=== PATIENT | female | born 1990 | race Caucasian/White ===

== ENCOUNTER 2023-07-15 19:05 | Inpatient (IN) | payer OTHER, SELFPAY ==
--- NOTE | ~2023-07-15 | CT_ITS ---
EXAMINATION: CT ABDOMEN AND PELVIS WITHOUT CONTRAST CLINICAL INFORMATION: Right flank pain history of stones COMPARISON: CT abdomen and pelvis from 02/11/2020 TECHNIQUE: Multidetector volumetric imaging was performed from the superior aspect of the liver through the pubic symphysis. Sagittal and coronal reformatted images were obtained on the technologist's workstation. This CT examination was performed using dose optimization techniques as appropriate, variously including the following: *Automated exposure control *Adjustment of mA and/or kV according to patient size (this includes techniques or standardized protocols for targeted exams where dose is matched to indication/reason for exam; i.e. extremities or head) *Use of iterative reconstruction technique DLP: 457 mGy-cm FINDINGS: LUNG BASES: The visualized lung bases are unremarkable. LIVER, GALLBLADDER, AND BILIARY TREE: The liver is normal in size, shape, and attenuation. No focal hepatic lesion or biliary ductal dilatation is present. The gallbladder is unremarkable with no evidence of radiopaque gallstones, gallbladder wall thickening, or obvious pericholecystic inflammatory changes. PANCREAS: Unremarkable. SPLEEN: Unremarkable. ADRENAL GLANDS: Unremarkable. KIDNEYS AND URETERS: Moderate right-sided hydroureteronephrosis with perinephric and periureteral stranding secondary to a 1.2 cm calculus in the right mid to distal ureter. Additional calculi are noted in the right kidney the largest measuring up to 6 mm in the interpolar/lower pole region. Multiple left-sided renal calculi are noted the largest measuring up to 4 mm without hydronephrosis. BLADDER: Unremarkable. GASTROINTESTINAL TRACT: The small and large bowel are unremarkable. The appendix is unremarkable. ABDOMINAL WALL: No significant hernia is appreciated. LYMPH NODES: Multiple subcentimeter mesenteric lymph nodes are noted, not enlarged per size criteria. VASCULAR: Dominant aorta is not enlarged. PELVIC VISCERA: Anteverted uterus. Fluid within the endometrial canal, correlation with phase of menstruation. Fluid in the pelvis, potentially physiologic. OSSEOUS STRUCTURES: Unremarkable. CT/CT abdomen pelvis wo IV con IMPRESSION: 1. Moderate right-sided hydroureteronephrosis with perinephric and periureteral stranding secondary to a 1.2 cm calculus in the right mid to distal ureter. 2. Bilateral nephrolithiasis with the largest measuring up to 6 mm in the interpolar/lower pole region of the right kidney. 3. Multiple left-sided renal calculi are noted the largest measuring up to 4 mm without hydronephrosis. 4. Fluid within the endometrial canal, correlation with phase of menstruation. Fluid in the pelvis, potentially physiologic.
[2023-07-15 19:09] VITALS: BP 134/62; BP 144/86; PULSE 54; PULSE 72; RESP 18; TEMP 36.5; O2SAT 98; BMI 29.6
[2023-07-15 19:23] LABS: MANUAL DIFF FLAG NO
[2023-07-15 19:25] LABS: Basophils Percent Auto 0.2 % (0-2); Eosinophils Percent Auto 0.2 % (0-4); Hematocrit 38.3 % (37.0-47.0); Hemoglobin 13.2 g/dl (12.0-16.0); Imm Gran Abs Auto 0.04 X10*3/uL (0.00-0.03); Imm Gran Pct Auto 0.3 % (0.0-0.4); Lymphocytes Absolute Auto 2.6 X10*3/uL (1.2-4.9); Lymphocytes Percent Auto 18.6 % (20-40); Mean Corpuscular HGB Conc 34.5 g/dl (31.0-35.0); Mean Corpuscular Hemoglobin 30.6 pg (27.0-33.0); Mean Corpuscular Volume 88.9 fL (80.0-98.0); Mean Platelet Volume 10.2 fL (9.4-12.3); Monocytes Absolute Auto 0.9 X10*3/uL (0.1-1.2); Monocytes Percent Auto 6.5 % (2-11); Neutrophils Absolute Auto 10.2 x10*3/uL (2.0-8.3); Neutrophils Percent Auto 74.2 % (45-73); Platelet Count 233 X10*3/uL (160-400); Red Blood Count 4.31 X10*6/uL (4.20-5.50); Red Cell Distribution Width 13.1 % (11.0-16.0); White Blood Count 13.8 X10*3/uL (4.8-10.8)
--- NOTE | 2023-07-15 19:26 | ED_ITS ---
HPI - General Adult General Chief complaint: Nausea/Vomiting/Diarrhea Stated complaint: KIDNEY STONES, VOMITING Time Seen by Provider: 07/15/23 19:19 Source: patient and EMS Mode of arrival: EMS Limitations: no limitations History of Present Illness HPI narrative: Patient comes to the emergency room complaining of right-sided flank pain, nausea and vomiting. Patient states all her symptoms started suddenly 2 hours ago. Patient has history of kidney stones, patient states the pain feels very similar to previous kidney stones. Patient has had ablations in the past. Patient denies hematuria or dysuria. No fever or chills. Related Data Allergies Allergy/AdvReac Type Severity Reaction Status Date / Time No Known Allergies Allergy Verified 05/06/22 12:53 Review of Systems 2 Review of Systems: Constitutional : No Weight loss, No Fever, No Chills, No Night Sweats, No Fatigue, No Malaise ENT/Mouth : No Hearing loss, No Ear Pain, No Nasal Congestion, No Sinus Pain, No Hoarseness, No sore throat, No Rhinorrhea, No Swallowing Difficulty Eyes: No Eye Pain, No Swelling, No Redness, No Foreign Body, No Discharge, No Vision Changes Cardiovascular : No Chest Pain, No SOB, No Dyspnea on Exertion, No Orthopnea, No Edema, No Palpitations Respiratory : No Cough, No Sputum, No Wheezing, No Smoke Exposure, No Dyspnea Gastrointestinal : Complaining of nausea vomit No Diarrhea, No Constipation, No abdominal Pain, No Hematochezia, No Melena Genitourinary : No hematuria or dysuria, no vaginal bleeding, complaining of severe right-sided flank pain radiating towards the groin Musculoskeletal : No joint pain, No Myalgias, No Joint Swelling Skin : No Skin Lesions, No rash Neuro : No Weakness, No Numbness, No Paresthesias, No Loss of Consciousness, No Dizziness, No Headache Psych : No Anxiety/Panic, No Depression, No SI/HI/AH/VH, No Social Issues, Heme/Lymph: No Bruising, No Bleeding,No Lymphadenopathy Endocrine : No Polyuria, No Polydipsia, No Temperature Intolerance [facility] Past Medical History Medical History Pyelonephritis Renal stones Recurrent nephrolithiasis Surgical History Previous section Social History Social History Alcohol intake: former Smoked in Last 30 Days: No Substance Use Type: Marijuana Substance Use Frequency: Occasionally Last Used Substance: Days (ago) Any prior treatment program specific to substance use: No Advance Directives: No Advance Directives Information Provided: No Patient : No Physical Exam ED Vital Signs: Vital Signs - 24 hr 07/15/23 19:09 07/15/23 20:07 Temperature 97.7 F Pulse Rate 54 Respiratory Rate 18 16 Blood Pressure 134/62 Pulse Oximetry 98 Oxygen Delivery Method Room Air BMI result Body Mass Index 29.6 Const Other: Appearance: Alert. Oriented X3. Very uncomfortable Eyes: Pupils equal, round and reactive to light. ENT: Pharynx normal. Neck: Normal inspection. Neck supple. No lymph nodes noted. No crepitus CVS: Normal heart rate and rhythm. Pulses normal. Normal S1 and S2 Respiratory: No respiratory distress. Breath sounds normal. No Wheezing. No rales Abdomen: Actively vomiting, Soft and nontender. No rigidity. No distention. Positive CVA tenderness on the right Skin: Skin warm and dry. Normal skin color. Normal skin turgor. Extremities: No lower extremity edema. No Lacerations. No Rash Neuro: Oriented X 3. No motor deficit. No sensory deficit. Moving all extremities. No slurred speech. CN 2 through 12 grossly intact Psych: calm, cooperative, normal affect Course Course Course Narrative: -patient receiving IV fluids, ketorolac and Zofran IV -labs and CT scan pending Medications Administered Discontinued Medications Generic Name Dose Route Start Last Admin Trade Name Freq PRN Reason Stop Dose Admin Sodium Chloride 1,000 mls @ 999 mls/hr 07/15/23 19:23 07/15/23 20:42 Ns IVCONT 07/15/23 20:23 Infused .Q1H1M ONE Infusion Promethazine HCl 12.5 mg/ 50.5 mls @ 202 mls/hr 07/15/23 21:52 07/15/23 22:04 Sodium Chloride IV 07/15/23 21:53 202 mls/hr ONCE ONE Administration Ketorolac Tromethamine 30 mg 07/15/23 19:23 07/15/23 19:41 Ketorolac Tromethamine 30 Mg/Ml Vial IVPUSH 07/15/23 19:24 30 mg ONCE ONE Administration Morphine Sulfate 4 mg 07/15/23 20:01 12/16/23 20:07 Morphine Sulfate 4 Mg/Ml Cartridge IVPUSH 07/15/23 20:02 4 mg ONCE ONE Administration Protocol Ondansetron HCl 4 mg 07/15/23 19:23 07/15/23 19:41 Ondansetron Hcl 4 Mg/2 Ml Vial IVPUSH 07/15/23 19:24 4 mg ONCE ONE Administration Prochlorperazine Edisylate 10 mg 07/15/23 20:01 07/15/23 20:07 Prochlorperazine Edisylate 10 Mg/2 Ml Vial IVPUSH 07/15/23 20:02 10 mg ONCE ONE Administration Medical Decision Making Medical Decision Making [facility] Narrative: -my interpretation of labs: White blood cell count 13.8, seems to be chronic, chemistry within normal limits, test negative -at this time, 21:23, patient has not provided a urine sample yet. -my interpretation of CT scan of the abdomen, there is approximately a 1 cm stone in the ureter with moderate hydronephrosis, radiology report pending -patient still feeling pretty nauseous and having pain, patient given more nausea medication and morphine -radiology report: 1.2 calculus with moderate right-sided hydroureteronephrosis -patient has received multiple doses of pain medication and nausea medications, patient is still in pain and continues to vomit -I discussed the patient with Dr. Vann, patient being admitted, recommendations: Keep NPO after midnight -of note, patient has not provided a urine sample. Differential Diagnosis Differential Diagnoses: The differential diagnosis associated with the presentation includes (Renal colic, ureterolithiasis, pyelonephritis, UTI) Admission/Observation Consideration of admission/observation: Escalation of care including admission/observation considered Consult Healthcare Provider Management of the patient was discussed with: [employer] Lab Data [facility] Lab Attestation statement: I reviewed the patient's lab results. 07/15/23 19:19 07/15/23 19:38 Labs: Lab Results 07/15/23 07/15/23 Range/Units 19:19 19:38 WBC 13.8 H (4.8-10.8) X10*3/uL RBC 4.31 (4.20-5.50) X10*6/uL Hgb 13.2 (12.0-16.0) g/dl Hct 38.3 (37.0-47.0) % MCV 88.9 (80.0-98.0) fL MCH 30.6 (27.0-33.0) pg MCHC 34.5 (31.0-35.0) g/dl RDW 13.1 (11.0-16.0) % Plt Count 233 (160-400) X10*3/uL MPV 10.2 (9.4-12.3) fL Immature Gran % (Auto) 0.3 (0.0-0.4) % Neut % (Auto) 74.2 H (45-73) % Lymph % (Auto) 18.6 L (20-40) % Mccracken % (Auto) 6.5 (2-11) % Eos % (Auto) 0.2 (0-4) % Baso % (Auto) 0.2 (0-2) % Lymph # (Auto) 2.6 (1.2-4.9) X10*3/uL [place] # (Auto) 0.9 (0.1-1.2) X10*3/uL Eos # (Auto) 0.0 (0.0-0.4) X10*3/uL Baso # (Auto) 0.0 (0.0-0.2) X10*3/uL Abs Immat Gran (auto) 0.04 H (0.00-0.03) X10*3/uL Absolute Neuts (auto) 10.2 H (2.0-8.3) x10*3/uL Absolute Nucleated RBC 0.000 (0.0-0.012) X10*3/uL Nucleated RBC % (auto) 0.0 (0.0-0.2) /100WBC Hold Purple Top SEE NOTE Sodium 140 (135-145) mmol/L Potassium 3.4 (3.3-5.1) mmol/L Chloride 110 H (96-108) mmol/L Carbon Dioxide 17 L (22-29) mmol/L Anion Gap 16 (12-20) BUN 9 (9-16) mg/dL Creatinine 0.75 (0.5-1.4) mg/dL Estim Creat Clear Calc 98.9 Estimated GFR > 60 Random Glucose 142 H (60-115) mg/dL Lactic Acid 1.5 (0.5-2.0) mmol/L Calcium 9.1 (8.4-10.2) mg/dL Total Bilirubin 0.5 (0.0-1.0) mg/dL AST 24 (5-31) U/L ALT 11 (0-31) U/L Alkaline Phosphatase 65 (39-117) U/L Total Protein 7.4 (6.5-8.0) g/dL Albumin 4.0 (3.5-5.0) g/dL Lipase 10 (8-78) U/L Beta HCG, Quant < 2 mIU/mL Independent Interpretation I performed an independent interpretation of an: CT Scan Radiology Impression Discussion of test interpretation with radiology: I have reviewed the radiologist's reading. Radiologist Impression: 1. Moderate right-sided hydroureteronephrosis with perinephric and periureteral stranding secondary to a 1.2 cm calculus in the right mid to distal ureter. 2. Bilateral nephrolithiasis with the largest measuring up to 6 mm in the interpolar/lower pole region of the right kidney. 3. Multiple left-sided renal calculi are noted the largest measuring up to 4 mm without hydronephrosis. 4. Fluid within the endometrial canal, correlation with phase of menstruation. Fluid in the pelvis, potentially physiologic. Critical Care Time Critical Care Time Critical Care Time: Yes Total Critical Care Time: 60 Attestation: I have personally provided critical care time. Time includes review of lab data, radiology results, discussion with consultants, and monitoring for potential decompensation. Intervention performed as documented. Discharge Plan Discharge Clinical Impression: Ureterolithiasis, Hydronephrosis Patient Disposition: Admitted As Inpatient
[2023-07-15] MEDS: 0.9 % Sodium Chloride 1,000 ML 999 ML IVCONT ×2 (19:41→23:07)
[2023-07-15] MEDS: ondansetron HCL 4 MG/2 ML VIAL IVPUSH (19:41)
[2023-07-15] MEDS: Ketorolac Tromethamine 30 MG/ML VIAL IVPUSH (19:41)
[2023-07-15 20:04] LABS: Lactic Acid 1.5 mmol/L (0.5-2.0)
[2023-07-15 20:07] VITALS: RESP 16
[2023-07-15] MEDS: Prochlorperazine Edisylate 10 MG/2 ML VIAL IVPUSH (20:07)
[2023-07-15] MEDS: Morphine Sulfate 4 MG/ML CARTRIDGE IVPUSH (20:07)
[2023-07-15 20:13] LABS: Alanine Aminotransferase 11 U/L (0-31); Alkaline Phosphatase 65 U/L (39-117); Anion Gap 16 (12-20); Aspartate Amino Transferase 24 U/L (5-31); Bilirubin Total 0.5 mg/dL (0.0-1.0); Blood Urea Nitrogen 9 mg/dL (9-16); Calcium 9.1 mg/dL (8.4-10.2); Carbon Dioxide 17 mmol/L (22-29); Chloride 110 mmol/L (96-108); Creatinine Clr Calc Pharmacy 98.9; Estimated Glomerular Filt Rate > 60; Glucose Random 142 mg/dL (60-115); HCG Quantitative < 2 mIU/mL; Lipase 10 U/L (8-78); Potassium 3.4 mmol/L (3.3-5.1); Sodium 140 mmol/L (135-145); Total Protein 7.4 g/dL (6.5-8.0)
[2023-07-15 23:06] VITALS: RESP 18
[2023-07-15] MEDS: HYDROmorphone HCl 0.5 MG/0.5 ML SYRINGE IVPUSH (23:06)
[2023-07-15 23:10] VITALS: BP 151/88; PULSE 69; RESP 17; TEMP 36.9; O2SAT 97
[2023-07-15 23:11] LABS: Appearance Urine Cloudy; Color Urine Yellow; Glucose Urine UA Negative (Negative); Leukocyte Esterase Urine Moderate (2+) (Negative); Nitrite Urine Negative (Negative); UMIC TRIGGER UACC YES; Urine Blood Large (3+) (Negative); Urine Ketones >=160 mg/dL (Negative); Urine Protein 100 (2+) mg/dL (Neg-Trace)
[2023-07-15 23:13] LABS: Bacteria Urine 1+ (None Seen); RBC Urine >20 /HPF (0-2); Squamous Epithelial Cell Urine 0-2 /HPF (0-2); UACC Culture Trigger YES; WBC Urine >50 /HPF (0-5)
[2023-07-15 23:19] LABS: Amphetamine Screen Urine Not Detected (Not Detect); Barbiturates, Urine Not Detected (Not Detect); Benzodiazepines Screen Urine Not Detected (Not Detect); Cannabinoid Screen Urine POSITIVE (Not Detect); Cocaine Screen Urine Not Detected (Not Detect); Fentanyl, urine Not Detected (Not Detect); Opiate Screen Urine POSITIVE (Not Detect); Phencyclidine Screen Urine Not Detected (Not Detect)
--- NOTE | 2023-07-16 00:17 | PC.NURSE ---
Patient reports right flank pain at tolerable level at this time 11/07. Patient denies nausea at this time. Patient's mother at bedside visiting patient.
--- NOTE | 2023-07-16 01:34 | PC.NURSE ---
Patient is sleeping, RR 16, breathing unlabored, no s/s of distress noted. Call hernandez in patient's reach.
[2023-07-16 01:35] VITALS: BP 116/65; PULSE 72; RESP 17; TEMP 37.1; O2SAT 96
[2023-07-16 05:13] VITALS: BP 111/57; PULSE 74; RESP 17; TEMP 37.1; O2SAT 98
--- NOTE | 2023-07-16 07:04 | PC.NURSE ---
Assumed care of pt at this time.
--- NOTE | 2023-07-16 07:32 | PHA.MEDREC ---
Pharmacy Consult ? Medication Reconciliation Pharmacy has completed the medication reconciliation. Reviewed med rec done by nursing (Carla). Claim history also shows no recent meds.
[2023-07-16 07:34] VITALS: BP 113/63; PULSE 80; RESP 18; O2SAT 96
[2023-07-16] MEDS: HYDROmorphone HCl 0.5 MG/0.5 ML SYRINGE IVPUSH (08:35)
--- NOTE | 2023-07-16 08:54 | PC.NURSE ---
Pt c/o increasing pain to right flank; ED provider notified. Pain medication ordered and administered (refer to [facility]) with good effect. Will continue to monitor- care ongoing.
--- NOTE | 2023-07-16 10:45 | PM.HPGS ---
History of Present Illness History of Present Illness Date of Service: 07/16/23 Chief complaint: Obstructing ureteric stone right side Narrative: Deanna Cartwright is a 32 year old female Presents to the emergency room with right-sided flank pain. Associated nausea and vomiting. Pain to 8 out of 10. Symptoms started suddenly on Monday evening Prior history kidney stone this feels very similar. Denies hematuria, dysuria fever and chills Labs WBC 13.8, creatinine 0.75 Imaging - Moderate right-sided hydroureteronephrosis with perinephric and periureteral stranding secondary to a 1.2 cm calculus in the right mid to distal ureter. Additional calculi are noted in the right kidney the largest measuring up to 6 mm in the interpolar/lower pole region. Multiple left-sided renal calculi are noted the largest measuring up to 4 mm without hydronephrosis Will admit with plan for procedure tomorrow. Discussed right-sided ureteroscopy. She would like to proceed. Review of Systems Constitutional: Constitutional: Reports as per HPI and Reports no additional constitutional complaints Cardiovascular: Cardiovascular: Reports as per HPI and Reports no additional cardiovascular complaints Respiratory: Respiratory: Reports as per HPI and Reports no additional respiratory complaints Gastrointestinal: Gastrointestinal: Reports as per HPI and Reports no additional gastrointestinal complaints Genitourinary: Genitourinary: Reports as per HPI Musculoskeletal: Musculoskeletal: Reports no additional musculoskeletal complaints and Reports as per HPI Neurologic: Reports system reviewed and no additional complaints, except as documented and Reports as per HPI PMFSH Past Medical History Medical History Pyelonephritis Renal stones Recurrent nephrolithiasis Surgical History Surgical History Previous section Social History Social History Alcohol intake: former Smoked in Last 30 Days: No Substance Use Type: Marijuana Substance Use Frequency: Occasionally Last Used Substance: Days (ago) Any prior treatment program specific to substance use: No Advance Directives: No Advance Directives Information Provided: No Patient : No Meds Allergies Allergy/AdvReac Type Severity Reaction Status Date / Time No Known Allergies Allergy Verified 05/06/22 12:53 Active Medications: Current Medications Acetaminophen (Acetaminophen 325 Mg Tablet) 650 mg PO Q6H GIANA Sodium Chloride (Ns) 1,000 mls @ 100 mls/hr IVCONT .Q10H GIANA Ketorolac Tromethamine (Ketorolac Tromethamine 30 Mg/Ml Vial) 15 mg IVPUSH Q6H [facility] Stop: 07/21/23 10:44 Ondansetron HCl (Ondansetron Hcl 4 Mg/2 Ml Vial) 4 mg IVPUSH Q8H PRN PRN Reason: Nausea and Vomiting Oxycodone HCl (Oxycodone Hcl Immed Release 5 Mg Tablet) 5 mg PO Q6H PRN PRN Reason: Pain, Severe (Pain Scale 7-10) Sodium Chloride (0.9 % Sodium Chloride Flush 3 Ml Syringe) 3 ml IVFLUSH QSHIFT [facility] Home Medications Medication Instructions Recorded Confirmed Last Taken Type No Known Home Meds 07/15/23 07/15/23 Unknown History Physical Exam Vital Signs: Vital Signs: Last Vital Signs Temp 98.7 F 07/16/23 05:13 Pulse 80 07/16/23 07:34 Resp 18 07/16/23 07:34 BP 113/63 07/16/23 07:34 Pulse Ox 96 07/16/23 07:34 O2 Del Method Room Air 07/16/23 07:34 BMI result Body Mass Index 29.6 Const: General: cooperative, healthy appearing, comfortable and no acute distress Orientation/consciousness: patient oriented x3 HEENT: Face and sinus: Yes normal facial exam Mouth: moist mucous membranes Neck: Neck: Yes normal visual inspection, Yes full ROM and Yes trachea midline Chest: Chest palpation & inspection: normal inspection of the chest Resp: Effort & Inspection: normal respiratory effort, able to speak in complete sentences and no respiratory distress GI: Inspection: Yes normal to inspection Back/Spine/Pelvis: Cervical Spine: normal cervical lordosis Thoracic/Lumbar Spine: thoracic and lumbar spine normal to inspection Skin: General skin exam: no rashes or lesions noted Neuro: General: patient oriented x3, tone normal and moves all extremities Extrem: General: Yes normal to inspection and Yes capillary refill normal Results Results Labs: Short CBC 07/15/23 Range/Units 19:19 WBC 13.8 H (4.8-10.8) X10*3/uL Hgb 13.2 (12.0-16.0) g/dl Hct 38.3 (37.0-47.0) % Plt Count 233 (160-400) X10*3/uL [facility] 07/15/23 19:38 Sodium 140 Potassium 3.4 Chloride 110 H Carbon Dioxide 17 L BUN 9 Creatinine 0.75 Calcium 9.1 Liver Function 07/15/23 Range/Units 19:38 Total Bilirubin 0.5 (0.0-1.0) mg/dL AST 24 (5-31) U/L ALT 11 (0-31) U/L Alkaline Phosphatase 65 (39-117) U/L Albumin 4.0 (3.5-5.0) g/dL Urine 07/15/23 Range/Units 23:03 Urine Color Yellow Urine Appearance Cloudy Urine pH 6.0 (5.0-9.0) Ur Specific [place] 1.020 (1.005-1.025) Urine Protein 100 (2+) H (Neg-Trace) mg/dL Urine Glucose (UA) Negative (Negative) mg/dL Assessment and Plan (1) Hydronephrosis: Qualifiers: Hydronephrosis type: with renal calculous obstruction Qualified Code(s): N13.2 - Hydronephrosis with renal and ureteral calculous obstruction Status: Acute (2) Ureterolithiasis: Status: Acute Plan Admission with intervention Ureteroscopy We discussed the nature of the decision and reasonable alternatives for performing ureteroscopy. Options such as medical therapy were discussed. Interventions include chemical dissolution, ESWL, ureteroscopy with laser lithotripsy and stent placement, PCNL. The relative uncertainties and benefits related to each alternate procedure were adequately discussed. General surgical risks including, but not limited to - pain, bleeding, infection, myocardial infarction, pulmonary embolus, deep vein thrombosis and cerebrovascular accident which may result in further hospitalization were discussed. Full disclosure of the procedure as well as all major risks, benefits and complications were discussed including but not limited to damage to the urethra, bladder and kidney infection, damage to the ureter, stent migration or malposition, scarring to the renal pelvis, remnant stone fragments, subsequent stone passage with need for secondary procedures. The overall secondary procedure rate is approximately 10-15%. The overall clearance rate is approximately 90-95%. Success of the procedure in the short-term does not necessarily guarantee that long-term success will be maintained. Suitable follow up will need to be maintained. The patient showed understanding of discussion and wishes to proceed with - cystoscopy, retrograde, ureteroscopy, possible lithotripsy/stone basketing and stent on the right side Quality Stroke Does the patient have a stroke diagnosis?: No VTE Prior VTE?: No VTE Risk Level:: Surgical - low VTE Device Contraindication: Treatment Not Indicated VTE Drug Contraindication: Treatment Not Indicated Procedures Date of Service Date of Service: 07/16/23
[2023-07-16] MEDS: Acetaminophen 325 MG TABLET 650 MG PO (11:07)
[2023-07-16] MEDS: Ketorolac Tromethamine 30 MG/ML VIAL 15 MG IVPUSH (11:07)
[2023-07-16] MEDS: 0.9 % Sodium Chloride 1,000 ML 100 ML IVCONT (11:12)
--- NOTE | 2023-07-16 13:53 | PC.NURSE ---
Pt requesting stronger pain meds post administration of Tylenol and torodol. Provider notified; stronger pain medications not order. Pt was not happy about this and stated I am going to rip my IV out. I am leaving. The doctors here suck. I want to leave now . Pt educated on the importance of staying for follow through with procedure in regard to obstructing kidney stone. Pt stated I don't give a fuck, fuck the pain, fuck this hospital. I am ready to leave right now. Pt then requested her IV be taken out as she is ready to leave. IV was removed and provider was notified. Pt AMA form printed and signed by pt. Pt proceeded to leave the building stating I'm going to [facility]. The care here sucks- I had to wait 16 hours with no food or drink and no bed. Pt independently walked to waiting room.
--- NOTE | 2023-09-22 17:12 | PM.DS ---
DS: Providers Provider Date of Service: 07/17/23 Date of admission: 07/16/23 10:41 Primary care physician: Unknown Physician DS: Diagnosis Discharge Diagnosis (1) Hydronephrosis: Start date: 09/16/23 Status: Acute (2) Ureterolithiasis: Status: Acute DS: Summary Hospital Course Hospital Course: Left AMA after hospital admission for right renal stone Time spent discussing smoking cessation with patient: 3 to 10 minutes Time Attestation Discharge coordination time: Less than 30 minutes Quality: Safe Use of Opioids Does Pt have an Active Cancer Diagnosis on the Problem List?: No Quality: Stroke Does the patient have a stroke diagnosis?: No Physical Exam Vital Signs: Vital Signs: Last Vital Signs Temp 98.7 F 07/16/23 05:13 Pulse 80 07/16/23 07:34 Resp 18 07/16/23 07:34 BP 113/63 07/16/23 07:34 Pulse Ox 96 07/16/23 07:34 O2 Del Method Room Air 07/16/23 07:34 BMI result Body Mass Index 29.6 DS: Data Imaging CT scan - abdomen: Radiologist's impression: ITS Impressions Abdomen/Pelvis CT 07/15/23 20:35 IMPRESSION: 1. Moderate right-sided hydroureteronephrosis with perinephric and periureteral stranding secondary to a 1.2 cm calculus in the right mid to distal ureter. 2. Bilateral nephrolithiasis with the largest measuring up to 6 mm in the interpolar/lower pole region of the right kidney. 3. Multiple left-sided renal calculi are noted the largest measuring up to 4 mm without hydronephrosis. 4. Fluid within the endometrial canal, correlation with phase of menstruation. Fluid in the pelvis, potentially physiologic. Discharge Plan Discharge Patient Disposition: Left Against Medical Advice Discharge Diagnosis: Ureteric stones Referrals: Physician,Unknown J [Primary Care Provider] - 1 Week Discharge Medications: No Action No Known Home Meds Discharge Orders: Discharge Order (Routine); Ordered 09/22/23 Ordered By: Joseph Vann Diet: Advance to usual diet Activity on Discharge: As tolerated Care Plan Goals: Left AMA Health Concerns: Left AMA Plan of Treatment: Left AMA Assessment: Left AMA Discharge Date/Time: 07/16/23 20:52
== END 2023-07-16 20:52 | disposition left against medical advice (07) | DRG 465 ==
LOC: HO.ED 07-16 08:01 → HO.EDOVER 07-16 10:48 → HO.S3 07-16 13:09 → HO.EDOVER 07-16 13:56
PROVIDERS: Admitting Provider Urology; Emergency Provider Emergency Medicine; Visit Provider Urology
DX: N13.2 Hydronephrosis with renal and ureteral calculous obstruction (principal); Z87.442 Personal history of urinary calculi; Z87.891 Personal history of nicotine dependence
CPT/HCPCS: 36415; 74176; 80053; 80307; 81001; 83605; 83690; 84702; 85025; 87040; 87086; 87088; 87147; 87186; 99285; J0737; J1170; J1885; J2270; J2405; J2550

== ENCOUNTER → 2023-07-16 10:41 | Outpatient (BNV) | payer OTHER, SELFPAY | PROVIDERS: Admitting Provider Urology; Emergency Provider Emergency Medicine; Visit Provider Urology | DX: N13.2 Hydronephrosis with renal and ureteral calculous obstruction (principal) | CPT/HCPCS: 99222 ==

== ENCOUNTER 2024-04-03 10:00 | Outpatient (AMB) | payer OTHER, SELFPAY ==
--- NOTE | 2024-04-03 10:03 | A.OFFVIS_ITS ---
Intake Visit Reasons: Hx of Kidney stones/Pyelonephritis Intake Note: Patient is present for Hx of Kidney Stones/Pyelonephritis Urology Medication:none Antibiotic Allergy:none Blood Thinner:none Lighting Fixture Installer Required: No Allergies No Known Allergies Allergy (Verified 04/03/24 10:04) HPI Comments Details: Deanna Cartwright is a pleasant female. She is a patient of . She is seen for the following urologic conditions - bilateral renal stones - pyelonephritis Longstanding stone former Recent multiple admissions to emergency rooms Had been seen [facility] - treated with antibiotics for 4 nights and discharge Nephrolithiasis Imaging - Moderate right-sided hydroureteronephrosis with perinephric and periureteral stranding secondary to a 1.2 cm calculus in the right mid to distal ureter. Additional calculi are noted in the right kidney the largest measuring up to 6 mm in the interpolar/lower pole region. Multiple left-sided renal calculi are noted the largest measuring up to 4 mm without hydronephrosis Recommend bilateral ureteroscopy with laser lithotripsy PFSH Medical History Pyelonephritis Renal stones Recurrent nephrolithiasis Surgical History Previous section Social History Alcohol intake: former Patient Tobacco Use Status: Former Tobacco user Substance Use Type: Marijuana Review of Systems Const Denies chills and Denies fever(s) Card Reports no additional complaints and Denies syncope Resp Denies cough GI Denies abdominal pain and Denies heartburn Reports as per HPI and Denies change in libido Neuro Denies syncope Psych Denies change in libido Endo Denies change in libido Physical Exam Const General: cooperative, healthy appearing, comfortable and no acute distress Orientation/consciousness: patient oriented x3 HEENT Face and sinus: Yes normal facial exam Mouth: moist mucous membranes Neck Neck: Yes normal visual inspection, Yes full ROM and Yes trachea midline Chest Chest palpation & inspection: normal inspection of the chest Resp Effort & Inspection: normal respiratory effort, able to speak in complete sentences and no respiratory distress GI Inspection: Yes normal to inspection Back/Spine/Pelvis Cervical Spine: normal cervical lordosis Thoracic/Lumbar Spine: thoracic and lumbar spine normal to inspection Skin General skin exam: no rashes or lesions noted Neuro General: patient oriented x3, gait normal, tone normal and moves all extremities Extrem General: Yes normal to inspection and Yes capillary refill normal Results AMB Urinalysis, Automated UA Leukoctes 15 Tash/uL Last Edit by KENNA Garcia on 04/03/24 10:21 UA Nitrite Negative Last Edit by KENNA Garcia on 04/03/24 10:21 UA Urobilinogen 0.2 mg/dL Last Edit by KENNA Garcia on 04/03/24 10:2 1 UA Protein 0 mg/dL Last Edit by Irma Christensen [facility] on 04/03/24 10:21 UA pH 6.5 Last Edit by Irma Christensen [facility] on 04/03/24 10:21 UA Blood 80 [place]/uL Last Edit by Irma Christensen [facility] on 04/03/24 10:21 UA Specific [place] 1.020 Last Edit by Irma Christensen [facility] on 04/03/24 10: 21 UA Ketone Positive Last Edit by KENNA Garcia on 04/03/24 10:21 UA Bilirubin 0 mg/dL Last Edit by KENNA Garcia on 04/03/24 10:21 UA Glucose 0 mg/dL Last Edit [facility] on 04/03/24 10:21 Results Reviewed Results Reviewed: Laboratory Last Values Urine pH (Auto) 6.5 04/03/24 10:21 Specific [place] (Auto) 1.020 04/03/24 10:21 Urine Protein (Auto) 0 mg/dL 04/03/24 10:21 Glucose (UA)(Auto) 0 mg/dL 04/03/24 10:21 Urine Ketones (Auto) Positive 04/03/24 10:21 Urine Blood (Auto) 80 [place]/uL 04/03/24 10:21 Urine Nitrite (Auto) Negative 04/03/24 10:21 Urine Bilirubin (Auto) 0 mg/dL 04/03/24 10:21 Urine Urobilinogen (Auto) 0.2 mg/dL 04/03/24 10:21 Leukocyte Esterase (Auto) 15 Tash/uL 04/03/24 10:21 Assessment & Plan Assessment & Plan (1) Hydronephrosis: Code(s): N13.30 - Unspecified hydronephrosis Category: Medical Qualifiers: Hydronephrosis type: with renal calculous obstruction Qualified Code(s): N13.2 - Hydronephrosis with renal and ureteral calculous obstruction (2) Ureterolithiasis: Code(s): N20.1 - Calculus of ureter Category: Medical Plan Ureteroscopy We discussed the nature of the decision and reasonable alternatives for performing ureteroscopy. Options such as medical therapy were discussed. Interventions include chemical dissolution, ESWL, ureteroscopy with laser lithotripsy and stent placement, PCNL. The relative uncertainties and benefits related to each alternate procedure were adequately discussed. General surgical risks including, but not limited to - pain, bleeding, infection, myocardial infarction, pulmonary embolus, deep vein thrombosis and cerebrovascular accident which may result in further hospitalization were discussed. Full disclosure of the procedure as well as all major risks, benefits and complications were discussed including but not limited to damage to the urethra, bladder and kidney infection, damage to the ureter, stent migration or malposition, scarring to the renal pelvis, remnant stone fragments, subsequent stone passage with need for secondary procedures. The overall secondary procedure rate is approximately 10-15%. The overall clearance rate is approximately 90-95%. Success of the procedure in the short-term does not necessarily guarantee that long-term success will be maintained. Suitable follow up will need to be maintained. The patient showed understanding of discussion and wishes to proceed with - cystoscopy, retrograde, ureteroscopy, possible lithotripsy/stone basketing and stent on the bilateral side Orders: Orders AMB Urinalysis Automated Today Z13.9 - Encounter for screening, unspecified Patient Instructions: Imaging studies, laboratory and physical exam results were discussed and reviewed in detail. No major barriers to patient understanding were identified. An opportunity to ask questions regarding the treatment plan was provided. All questions were answered. The patient expressed understanding and agreement with the above treatment plan. The patient is aware they should contact our office by phone for worsening of their current condition or the appearance of new urologic symptoms. Compliance is encouraged with any medications and followup testing that is ordered. It is a privilege to participate in the urologic care of your patient. If you have any questions or concerns regarding treatment for the above conditions, or other urologic issues, please do not hesitate to contact me. The office telephone contact is [phone]. This note is constructed using voice recognition software. While every effort has been made to ensure accuracy medical appliance maker errors may have been included. Yours sincerely, Dr Joseph Vann MD, [facility] - Urology Providers of Expert, Compassionate Care for the Genitourinary System Coding Level of Care Code Est Pt Level 4 (83759) Diagnoses Hydronephrosis with urinary obstruction due to renal calculus N13.2 Hydronephrosis type: with renal calculous obstruction Ureterolithiasis N20.1
== END 2024-04-03 10:42 | disposition home or self-care (01) ==
PROVIDERS: PCP Internal Medicine; Visit Provider Urology
DX: N13.2 Hydronephrosis with renal and ureteral calculous obstruction (principal); Z13.9 Encounter for screening, unspecified
CPT/HCPCS: 99214

== ENCOUNTER → 2024-04-03 10:00 | Outpatient (BNVA) | payer OTHER, SELFPAY | PROVIDERS: PCP Internal Medicine; Visit Provider Urology | DX: N13.2 Hydronephrosis with renal and ureteral calculous obstruction (principal); N20.1 Calculus of ureter | CPT/HCPCS: 81003; 99212 ==

== ENCOUNTER 2024-04-23 10:02 | Day surgery (SDC) | payer OTHER, SELFPAY ==
--- NOTE | 2024-04-22 12:04 | HO.ANESPROP2 ---
Documented by User: Ila Mccoy NP 04/22/24 12:04 HPI - Anesthesia Eval Consult details Narrative: 33yo F for Bilateral Cystoscopy, Ureteroroscopy, Retro, Laser with stent placement PMFSH Active Problems Active Problems: All Active Problems Hydronephrosis (Acute) Ureterolithiasis (Acute) Past Medical History Medical History Pyelonephritis Renal stones Recurrent nephrolithiasis Surgical History Surgical History H/O tubal ligation Previous section Social History Social History Alcohol intake: former Patient Tobacco Use Status: Former Tobacco user Substance Use Type: Marijuana Substance Use Type Other:: smokes yesterday Have you been hit, kicked, punched, or otherwise hurt by someone within the past year? If so, by whom?: No Are you DNR?: No Advance Directives: No Advance Directives Information Provided: Yes Recently lost weight without trying: No Nutrition Risks: No Nutritional Risk FDLMP: hx tubal lig Meds Allergies Allergy/AdvReac Type Severity Reaction Status Date / Time No Known Allergies Allergy Verified 04/03/24 10:04 Home Medications ?Medication ?Instructions ?Recorded ?Confirmed ?Last Taken ?Type oxycodone 5 mg tablet 5 mg PO QID PRN Pain (Scale Score 04/22/24 04/23/24 04/22/24 History 7-10) tramadol 50 mg tablet 50 mg PO Q6H PRN Pain (Scale Score 04/22/24 04/23/24 04/22/24 History 4-6) Assessment and Plan Assessment Anesthesia Assessment: Chart Reviewed Documented by User: Prudence Napier MD 04/23/24 12:11 [facility] Past Medical History Medical History Pyelonephritis Renal stones Recurrent nephrolithiasis Family History Family history of problems with anesthesia: No Surgical History Surgical History H/O tubal ligation Previous section History of Problems with Anesthesia: No Social History Social History Alcohol intake: former Patient Tobacco Use Status: Former Tobacco user Substance Use Type: Marijuana Substance Use Type Other:: smokes yesterday Have you been hit, kicked, punched, or otherwise hurt by someone within the past year? If so, by whom?: No Are you DNR?: No Advance Directives: No Advance Directives Information Provided: Yes Recently lost weight without trying: No Nutrition Risks: No Nutritional Risk FDLMP: hx tubal lig Meds Allergies Allergy/AdvReac Type Severity Reaction Status Date / Time No Known Allergies Allergy Verified 04/03/24 10:04 Home Medications ?Medication ?Instructions ?Recorded ?Confirmed ?Last Taken ?Type oxycodone 5 mg tablet 5 mg PO QID PRN Pain (Scale Score 04/22/24 04/23/24 04/22/24 History 7-10) tramadol 50 mg tablet 50 mg PO Q6H PRN Pain (Scale Score 04/22/24 04/23/24 04/22/24 History 4-6) Exam Airway Mallampati Class: II TM Dist: >3cm Neck ROM: Full Heart: rrr Lungs: cta Assessment and Plan Assessment Anesthesia Assessment: Anesthesia Plan Discussed Final Anesthetic Review Family History of Problems with Anesthesia: No History of Problems with Anesthesia: No NPO: Yes ASA Class: II Final Preanesthetic Review: No Changes in Pt Med Stat and Meds/Allgs Chart Reviewed Patient Risk: Intermediate Procedure Risk: Intermediate Anesthetic Plan Anesthetic Plan: GA Disposition: Standard PACU
[2024-04-23] VITALS (8 sets, daily range): BP systolic 110–131; BP diastolic 66–81; PULSE 60–82; RESP 15–20; TEMP 36.4–36.9; O2SAT 98–100; BMI 30.3
[2024-04-23] MEDS: Lactated Ringers 1,000 ML 100 ML IVCONT (10:49)
--- NOTE | 2024-04-23 12:34 | MHC.SHP ---
Pre-Procedural Eval Section A - 24 Hr Update-Section A only Date of Service: 04/23/24 The patient is an INPATIENT: No The patient has been examined within 24 hours of the surgical procedure. The History & Physical has been completed within 30 days and I have reviewed it.: Yes Section B - Complete if H&P > 30 days Chief Complaint: Unspecified hydronephrosis, b/L kidney stones Allergies: Allergies Allergy/AdvReac Type Severity Reaction Status Date / Time No Known Allergies Allergy Verified 04/03/24 10:04 Plan Diagnosis/Plan: Unchanged I have reviewed the history and physical and performed a pertinent physical examination on my patient. No changes have occurred unless specified. Cystoscopy. Bilateral retrogrades, left ureteroscopy, possible right ureteroscopy, bilateral laser lithotripsy, stents. Time Spent With Patient Time: Total time managing care of this patient today ____ minutes.
--- NOTE | 2024-04-23 15:18 | P.OP_ITS ---
Operative Note Operative Note Date of Service: 04/23/24 Narrative: PreOperative Diagnosis:?? Bilateral nephrolithiasis Post Operative Diagnosis:?? Bilateral nephrolithiasis Procedure: - Cystoscopy, bilateral retrograde, bilateral ureteroscopy laser lithotripsy bilateral stent insertion, 6 Lithuanian by 24 cm Modifier for bilateral and time due to multiple left renal calculi Surgeon:?Dr Abdon Diamond Anesthesia:? General Indications for procedure: Deanna is a 33-year-old female who has had history of kidney stones. She had a recent admission in February for right pyelonephritis CT imaging at that time noted right renal calculus lower pole and multiple small left renal calculi up to 3-4 mm Procedure: After informed consent was verified the patient was brought to the operating placed on the OR table in supine position.? General Anesthesia was administered per protocol.? The patient was placed in lithotomy position, prepped and draped in the usual sterile fashion.? Safety pause time-out and side of surgery confirmed.? Antibiotics confirmed. Ancef 2 g IV and Levaquin 500 mg IV 2% lidocaine jelly 10 mL was passed transurethrally. A 22 Lithuanian cystoscope was inserted transurethrally. The bladder was visualized.? Both ureteric orifices were in normal position. An open-ended ureteral catheter was passed into the right ureteral orifice and a retrograde examination was performed. No filling defect in the right ureter or renal pelvis and calyces. A guidewire was passed through the ureteral catheter into the kidney. The balloon dilator size 12 fr x 4 cm was passed over the guide-wire the balloon was inflated to 8 mmHg and the intramural ureter was dilated for 30 seconds. The balloon was deflated and removed. After removing the balloon dilator a 2nd guidewire was then passed into the kidney to use as a safety. The cystoscope was removed, leaving both guidewires in place. One guidewire was used as the safety and was attached to the draping. The disposable flexible ureteroscope was passed over one of the guidewires into the right kidney. The stone was visualized in the lower pole of the right kidney. One guidewire was then removed. Laser lithotripsy of the stone was done using the 220 fiber with a alternating pulsating and dusting setting. There was good fragmentation of the stone. The ureteroscope was removed. The cystoscope was passed over the safety guidewire. A? 6 Lithuanian by 24 cm stent was placed into the ureter and renal pelvis under a combination of fluoroscopy and direct visualization. Attention to the left side. A retrograde was done there was mild fullness of the left renal pelvis. In similar fashion as dictated on the right side. Two guidewires were placed into the left ureter. The disposable flexible ureteroscope was placed up into the renal pelvis after removing 1 guidewire the laser was placed size 220. There were multiple renal calculi noted in the upper mid and lower calyces that were lasered. Good fragmentation of the stones were noted. The ureteroscope was removed. And with the remaining safety guidewire a 6 Lithuanian by 24 cm stent was placed into the left ureter and renal pelvis under fluoroscopy.? The patient tolerated the procedure well and was brought to the recovery room in stable condition. Complications: None Drains: Ureteral stents as dictated above
[2024-04-23] MEDS: ondansetron HCL 4 MG/2 ML VIAL IVPUSH (15:30)
[2024-04-23] MEDS: Haloperidol Lactate 5 MG/ML VIAL 1 MG IVPUSH (15:50)
== END 2024-04-23 16:24 | disposition home or self-care (01) ==
PROVIDERS: Visit Provider Urology
PROC: (CPT 52356; principal; 2024-04-23 12:30)
DX: N13.30 Unspecified hydronephrosis (principal); N20.0 Calculus of kidney; Z87.442 Personal history of urinary calculi; Z87.891 Personal history of nicotine dependence
CPT/HCPCS: 52356; 87086; C1726; C1758; C1769; C2617; J0131; J0690; J1100; J1630; J1885; J1940; J1956; J2250; J2405; J2704; J3010; Q9967

== ENCOUNTER → 2024-04-23 10:02 | Outpatient (BNV) | payer OTHER, SELFPAY | PROVIDERS: Visit Provider Urology | DX: N13.30 Unspecified hydronephrosis (principal) | CPT/HCPCS: 52356; 74420 ==

== ENCOUNTER 2024-05-08 09:43 | Outpatient (AMB) | payer OTHER, SELFPAY ==
--- NOTE | 2024-05-08 09:49 | MHC.OFFVIS ---
Intake Visit Reasons: Stent removal Intake Note: Patient is Present for Cystoscopy/Stent Removal Urology Med: Pyridium Antibiotic Allergy: None Blood Thinner: None URO- G Disposable Cystoscope lot:[id number] exp:11/08/2026 Allergies No Known Allergies Allergy (Verified 04/03/24 10:04) HPI Comments Details: Deanna Cartwright is a pleasant female. She is a patient of . She is seen for the following urologic conditions - bilateral renal stones - pyelonephritis Longstanding stone former Recent multiple admissions to emergency rooms Had been seen [facility] - treated with antibiotics for 4 nights and discharge Underwent bilateral ureteroscopy Here for stent removal Will need [facility], stone labs repeat imaging Nephrolithiasis Imaging - Moderate right-sided hydroureteronephrosis with perinephric and periureteral stranding secondary to a 1.2 cm calculus in the right mid to distal ureter. Additional calculi are noted in the right kidney the largest measuring up to 6 mm in the interpolar/lower pole region. Multiple left-sided renal calculi are noted the largest measuring up to 4 mm without hydronephrosis PFSH Medical History Pyelonephritis Renal stones Recurrent nephrolithiasis Surgical History H/O tubal ligation Previous section Social History Alcohol intake: former Patient Tobacco Use Status: Former Tobacco user Substance Use Type: Marijuana Review of Systems Const Denies chills and Denies fever(s) Card Reports no additional complaints and Denies syncope Resp Denies cough GI Denies abdominal pain and Denies heartburn Reports as per HPI and Denies change in libido Neuro Denies syncope Psych Denies change in libido Endo Denies change in libido Physical Exam Const General: cooperative, healthy appearing, comfortable and no acute distress Orientation/consciousness: patient oriented x3 HEENT Face and sinus: Yes normal facial exam Mouth: moist mucous membranes Neck Neck: Yes normal visual inspection, Yes full ROM and Yes trachea midline Chest Chest palpation & inspection: normal inspection of the chest Resp Effort & Inspection: normal respiratory effort, able to speak in complete sentences and no respiratory distress GI Inspection: Yes normal to inspection Back/Spine/Pelvis Cervical Spine: normal cervical lordosis Thoracic/Lumbar Spine: thoracic and lumbar spine normal to inspection Skin General skin exam: no rashes or lesions noted Neuro General: patient oriented x3, gait normal, tone normal and moves all extremities Extrem General: Yes normal to inspection and Yes capillary refill normal Office Procedures Cystoscopy Consent Discussed risk and benefit or proposed procedure with the patient. Information consent for procedure given to the patient. Discussed technical aspects, risks, benefits and alternatives in full. Addressed all of the patient's questions and concerns regarding the procedure. The patient demonstrated knowledge and understanding. They wish to proceed with this procedure. Preparation The patient was prepped in the usual manner. A special projects manager was present and in the room. Genitalia was prepped with betadine solution in a sterile manner. Lidocaine Jelly 2% was placed into the urethra and 16Fr flexible Olympus cystoscope was inserted into the meatus after adequate lubrication. Procedure A well lubricated 16 Kyrgyz cystoscope was placed No abnormality noted of urethra during placement Indwelling stent seen within bladder emerging from bilateral ureteric orifices The stent was grasped with a 3 prong grasper and removed without difficulty The patient tolerated the procedure well Initial Side right, 2nd side left. [id number] with stent removal DISPOSABLE SCOPE URO-G FLEXIBLE SCOPE Procedure code (CPT) selection complete Office Meds lidocaine HCl 2 % mucosal jelly in applicator Performing Provider: Joseph Vann MD Performing Location: [facility] [place] [facility] Administered by: José Sommer LPN on 05/08/24 10:00 Dose Route Admin Location Dispensed Lot Number Expiration Date NDC Construction Economist 10 mL intra-urethral 10 mL nitrofurantoin monohydrate/macrocrystals 100 mg capsule Performing Provider: Joseph Vann MD Performing Location: [facility] [place] [facility] Administered by: José Sommer LPN on 05/08/24 10:00 Dose Route Admin Location Dispensed Lot Number Expiration Date NDC [employer]ist 100 mg PO 1 cap naproxen 500 mg tablet Performing Provider: Joseph Vann MD Performing Location: [facility] [place] [facility] Administered by: José Sommer LPN on 05/08/24 10:00 Dose Route Admin Location Dispensed Lot Number Expiration Date [employer] 500 mg PO 1 tab Results AMB Urinalysis, Automated UA Leukoctes 125 Tash/uL Last Edit by Zehra Monteiro, A on 05/08/24 09:59 UA Nitrite Negative Last Edit by Zehra Monteiro, A on 05/08/24 09:59 UA Urobilinogen 0.2 mg/dL Last Edit by Zehra Monteiro, RMA on 05/08/24 09:59 UA Protein 300 mg/dL Last Edit by Zehra Monteiro, A on 05/08/24 09:59 UA pH 7.5 Last Edit by Zehra Monteiro, RMA on 05/08/24 09:59 UA Blood 200 [place]/uL Last Edit by Zehra Monteiro, RMA on 05/08/24 09:59 UA Specific [place] 1.015 Last Edit by Zehra Monteiro, A on 05/08/24 09:59 UA Ketone Negative Last Edit by Zehra Monteiro, A on 05/08/24 09:59 UA Bilirubin 0 mg/dL Last Edit by Zehra Monteiro, A on 05/08/24 09:59 UA Glucose 0 mg/dL Last Edit by Zehra Monteiro, A on 05/08/24 09:59 Results Reviewed Results Reviewed: Laboratory Last Values Urine pH (Auto) 7.5 05/08/24 09:50 Specific [place] (Auto) 1.015 05/08/24 09:50 Urine Protein (Auto) 300 mg/dL 05/08/24 09:50 Glucose (UA)(Auto) 0 mg/dL 05/08/24 09:50 Urine Ketones (Auto) Negative 05/08/24 09:50 Urine Blood (Auto) 200 [place]/uL 05/08/24 09:50 Urine Nitrite (Auto) Negative 05/08/24 09:50 Urine Bilirubin (Auto) 0 mg/dL 05/08/24 09:50 Urine Urobilinogen (Auto) 0.2 mg/dL 05/08/24 09:50 Leukocyte Esterase (Auto) 125 Tash/uL 05/08/24 09:50 Assessment & Plan Assessment & Plan (1) Hydronephrosis: Code(s): N13.30 - Unspecified hydronephrosis Category: Medical Qualifiers: Hydronephrosis type: with renal calculous obstruction Qualified Code(s): N13.2 - Hydronephrosis with renal and ureteral calculous obstruction (2) Ureterolithiasis: Code(s): N20.1 - Calculus of ureter Category: Medical Plan [facility] Stone labs Orders: Orders US renal BI 2 Months N20.1 - Calculus of ureter URORISK Today N20.0 - Calculus of kidney, N20.1 - Calculus of ureter Basic Metabolic Panel Today N20.1 - Calculus of ureter Phosphorus Today N20.1 - Calculus of ureter Uric Acid Today N20.1 - Calculus of ureter AMB Urinalysis Automated Today Z13.9 - Encounter for screening, unspecified AMB Cystoscopy Today N20.1 - Calculus of ureter Magnesium Today N20.1 - Calculus of ureter Calcium Today N20.1 - Calculus of ureter Vitamin D 25-OH Total Today N20.1 - Calculus of ureter Patient Instructions: Imaging studies, laboratory and physical exam results were discussed and reviewed in detail. No major barriers to patient understanding were identified. An opportunity to ask questions regarding the treatment plan was provided. All questions were answered. The patient expressed understanding and agreement with the above treatment plan. The patient is aware they should contact our office by phone for worsening of their current condition or the appearance of new urologic symptoms. Compliance is encouraged with any medications and followup testing that is ordered. It is a privilege to participate in the urologic care of your patient. If you have any questions or concerns regarding treatment for the above conditions, or other urologic issues, please do not hesitate to contact me. The office telephone contact is [phone]. This note is constructed using voice recognition software. While every effort has been made to ensure accuracy shadow graph weight operator errors may have been included. Yours sincerely, Dr Joseph Vann MD, [facility] - Urology Providers of Expert, Compassionate Care for the Genitourinary System Coding Level of Care Code Est Pt Level 4 (54033) Diagnoses Hydronephrosis with urinary obstruction due to renal calculus N13.2 Hydronephrosis type: with renal calculous obstruction Ureterolithiasis N20.1 CPT Codes Cystoscopy - CPT: 79399-Yunzcatzzw with stent removal ([id number])
== END 2024-05-08 10:31 | disposition home or self-care (01) ==
PROVIDERS: PCP Internal Medicine; Visit Provider Urology
DX: N13.2 Hydronephrosis with renal and ureteral calculous obstruction (principal); Z96.0 Presence of urogenital implants
CPT/HCPCS: 52310; 99214

== ENCOUNTER → 2024-05-08 09:43 | Outpatient (BNVA) | payer OTHER, SELFPAY | PROVIDERS: PCP Internal Medicine; Visit Provider Urology | DX: N13.2 Hydronephrosis with renal and ureteral calculous obstruction (principal); Z46.6 Encounter for fitting and adjustment of urinary device | CPT/HCPCS: 52310; 81003; 99212 ==

== ENCOUNTER 2024-07-09 07:57 | Outpatient (REF) | payer OTHER, SELFPAY | END 2024-07-09 07:58 | disposition home or self-care (01) | LOC: HO.US 07:57 | PROVIDERS: PCP Internal Medicine; Visit Provider Urology | DX: N20.1 Calculus of ureter (principal) | CPT/HCPCS: 76775 ==

== ENCOUNTER 2024-07-16 11:15 | Outpatient (REF) | payer OTHER, SELFPAY | END 2024-07-16 11:16 | disposition home or self-care (01) | LOC: HO.LNP 11:15 | PROVIDERS: PCP Internal Medicine; Visit Provider Nurse Practitioner Family | DX: N20.0 Calculus of kidney (principal); R10.9 Unspecified abdominal pain | CPT/HCPCS: 81003; 87086; 87088; 87186; 99212 ==

== ENCOUNTER 2024-07-16 11:15 | Outpatient (AMB) | payer OTHER, SELFPAY ==
--- NOTE | 2024-07-16 11:24 | A.OFFVIS_ITS ---
Intake Visit Reasons: 10w/US/Litholink(set) Intake Note: Patient presents today for follow up on: ureterolithiasis, ultrasound and litholink results Imaging Completed: 05/06/24 Litholink: Completed Urology Medication:none Antibiotic Allergy:none Blood Thinner:none Medical Logistics Specialist Required: No Accompanied by: Self / Same As Patient Allergies No Known Allergies Allergy (Verified 07/16/24 11:54) Medication List - Last Reconciled 07/16/24 by ZULEIKA Apple fluconazole 150 mg PO Q3D 2 doses pyridoxine (vitamin B6) 100 mg PO DAILY 90 days sulfamethoxazole-trimethoprim 800-160 mg (Bactrim DS) 1 tab PO BID 10 days HPI Comments Details: Deanna is a very pleasant 33-year-old female patient of . She presents to the office today for follow-up of her nephrolithiasis as well as pyelonephritis. In discussion with the patient today she reports noting over the last 2-3 days increased episodes of bilateral flank pain right side greater than left and lower urinary tract symptoms. She reports noting urinary urgency, urinary frequency, and dysuria. In office urinalysis results reviewed with the patient today. 2+ leukocytes negative nitrates. We discussed at length potential causes of lower urinary tract symptoms patient was experiencing. Recent unofficial renal imaging results reviewed with the patient today. Bilateral kidneys with no hydronephrosis or masses noted. Right kidney with upper pole nonobstructing 3 mm calculi. Left kidney with 3 small nonobstructing calculi largest measuring 4 mm. Of note, patient underwent bilateral ureteroscopy 04/03/[address] Vann and during last office visit had ureteral stent removal. Recent Litholink results reviewed with the patient today. We discussed at length importance of adequate hydration relation to nephrolithiasis as Lithdiyak notes extremely low urine volume of 0.5 L. She denies incontinence, nocturia, hematuria, fever, and or chills. She otherwise denies any other issues or concerns at this time. [facility] Medical History (Updated 07/16/24 @ 14:29 by ZULEIKA Apple) Pyelonephritis Renal stones Recurrent nephrolithiasis Surgical History H/O tubal ligation Previous section Social History Alcohol intake: former Patient Tobacco Use Status: Former Tobacco user Substance Use Type: Marijuana Review of Systems Const All systems reviewed & are unremarkable except as noted in HPI and below Physical Exam Const General: cooperative, healthy appearing, comfortable, no acute distress, well developed, alert and awake Orientation/consciousness: patient oriented x3 Limitations: no limitations HEENT Head: Yes normal to inspection, Yes normocephalic and Yes atraumatic Ears: hearing grossly normal bilaterally Eyes General: appearance normal, both eyes and all related structures Neck Neck: Yes normal visual inspection and Yes trachea midline Chest Chest palpation & inspection: normal inspection of the chest Resp Effort & Inspection: normal respiratory effort and able to speak in complete sentences Cardio Rate: regular rate GI Inspection: Yes normal to inspection General: Yes no CVA tenderness Back/Spine/Pelvis Back: no CVA tenderness Skin General skin exam: no rashes or lesions noted Neuro General: patient oriented x3 Extrem General: Yes normal to inspection Psych Appearance: grossly normal and well kempt Mental Status: mental status grossly normal Speech and movement: Normal speech and movement present and Clear speech present Affect: normal affect Attitude: cooperative Thought process: Normal thought process present Thought content: Normal thought content present Insight: Fair insight present (Psych) Judgement: Fair judgement present (Psych) Results AMB Urinalysis, Automated UA Leukoctes 125 Tash/uL Last Edit by Arsh Santana on 07/16/24 14:18 UA Nitrite Last Edit by Arsh Santana on 07/16/24 14:18 UA Urobilinogen 0.2 mg/dL Last Edit by Arsh Santana on 07/16/24 14:18 UA Protein 30 mg/dL Last Edit by Arsh Santana on 07/16/24 14:18 UA pH 6.0 Last Edit by Arsh Santana on 07/16/24 14:18 UA Blood 25 [place]son/uL Last Edit by Arsh Santana on 07/16/24 14:18 UA Specific [place] 1.020 Last Edit by Arsh Clarkyuli on 07/16/24 14:18 UA Ketone Last Edit by Arsh Clarkyuli on 07/16/24 14:18 UA Bilirubin 0 mg/dL Last Edit by Arsh Clarkyuli on 07/16/24 14:18 UA Glucose 0 mg/dL Last Edit by Heldermercy Amberyuli on 07/16/24 14:18 Results Reviewed Results Reviewed: Laboratory Last Values Urine pH (Auto) 6.0 07/16/24 14:02 Specific [place] (Auto) 1.020 07/16/24 14:02 Urine Protein (Auto) 30 mg/dL 07/16/24 14:02 Glucose (UA)(Auto) 0 mg/dL 07/16/24 14:02 Urine Blood (Auto) 25 Anson/uL 07/16/24 14:02 Urine Bilirubin (Auto) 0 mg/dL 07/16/24 14:02 Urine Urobilinogen (Auto) 0.2 mg/dL 07/16/24 14:02 Leukocyte Esterase (Auto) 125 Tash/uL 07/16/24 14:02 Assessment & Plan Assessment & Plan (1) Renal stones: Code(s): N20.0 - Calculus of kidney Category: Medical (2) Flank pain: Code(s): R10.9 - Unspecified abdominal pain Category: Medical Plan In office urinalysis results reviewed with the patient today; as noted above; will send for urine culture. We discussed at length potential causes of symptoms patient is experiencing. Recent renal ultrasound results reviewed with the patient today; as noted above. Litholink results reviewed with the patient today; as noted above We discussed at length importance of adequate hydration relation to lower urinary tract symptoms, nephrolithiasis, and overall health and well-being. Start Bactrim as discussed and prescribed. Start vitamin B6 as discussed and prescribed. Discussed adding 1 oz of lemon juice to water daily. We discussed obtaining further imaging given patient's symptoms however will continue with surveillance monitoring at this time; patient will call if symptoms continue and or worsen or seek medical treatment. Follow-up in 3 months; or sooner with any issues, concerns, and or questions. Orders: Orders Urine Culture Today Z13.9 - Encounter for screening, unspecified AMB Urinalysis Automated Today Z13.9 - Encounter for screening, unspecified Medications: New sulfamethoxazole-trimethoprim 800-160 mg (Bactrim DS) 1 tab PO BID 20 tabs 0RF 10 days N39.0 - Urinary tract infection, site not specified pyridoxine (vitamin B6) 100 mg PO DAILY 90 tabs 1RF 90 days fluconazole 150 mg PO Q3D 2 tabs 0RF 2 doses B49 - Unspecified mycosis Discontinued prednisone Discontinued Reason: Patient no longer taking 20 mg PO DAILY 3 days 3 tabs 0RF cefuroxime axetil Discontinued Reason: Patient no longer taking 500 mg PO BID 14 tabs 0RF phenazopyridine (Pyridium) Take meds with food Discontinued Reason: Doctor's Order 200 mg PO TID PRN 20 tabs 0RF urinary burning ondansetron HCl Discontinued Reason: Patient no longer taking 8 mg PO Q6-8H PRN 20 tabs 0RF nausea and vomiting tramadol Discontinued Reason: Patient no longer taking 50 mg PO Q6H PRN 10 tabs 0RF pain Patient Instructions: The patient had an opportunity to ask questions regarding the treatment plan. All questions were answered. Physical exam, labs, and imaging were discussed and reviewed in detail. As well as risks, benefits, and discussion of treatment c hoices. No major barriers to understanding were identified. The patient expressed understanding and agreement with the above treatment plan. The patient was made aware they should contact our office by phone for worsening of their current condition, the appearance of new symptoms, or with any questions or concerns. Compliance is encouraged with any medications and follow up testing that is ordered. It is a privilege to be allowed the opportunity to participate in? your urological care.? Again, if you have any questions or concerns If you have any questions or concerns please do not hesitate to contact me. The office is [phone]. This note is constructed using voice recognition software. While every effort has been made to ensure accuracy level vial grinder errors may have been included. Yours sincerely, ZULEIKA Apple Coding Level of Care Code Est Pt Level 4 (69137) Diagnoses Renal stones N20.0 Flank pain R10.9
== END 2024-07-16 11:51 | disposition home or self-care (01) ==
PROVIDERS: PCP Internal Medicine; Visit Provider Nurse Practitioner Family
DX: N20.0 Calculus of kidney (principal); R10.9 Unspecified abdominal pain; Z13.9 Encounter for screening, unspecified
CPT/HCPCS: 99214

== ENCOUNTER 2024-09-30 12:17 | Outpatient (REF) | payer OTHER, SELFPAY ==
--- OUTSIDE RECORDS SUMMARY | 2024-09-30 14:24 | XMS_ITS | Clinical Summary ---
Author Organization [facility] ity Address [address] [place] [address] Care Team Providers Care Penology Teacher Name Role Phone Ashly Viveros MD Primary Care Provider [phone] Social History Tobacco Use Types Packs/Day Years Used Date Smoking Tobacco: Never Assessed Comments Unknown Sex and Gender Information Value Date Recorded Sex Assigned at Not on file Legal Sex Female 10:59 PM EST Gender Identity Not on file Sexual Orientation Not on file Obstetrics History Plan of Treatment Health Maintenance Due Date Last Done Comments DTaP,Tdap,and Td Vaccines (1 - Tdap) 10/10/2011 Hepatitis B Vaccines (1 of 3 - 19+ 3-dose series) 10/10/2011 Cervical Cancer Screening: P ap Smear 2013 COVID-19 Vaccine (2023-2 5 season) 2024 Influenza Vaccine (#1) 2024 HIB Vaccines Aged Out No longer eligi ble based on patient's age to complete this topic HPV Vaccines Aged Out No longer eligi ble based on patient's age to complete this topic Hepatitis A Vaccines Aged Out No long er eligible based on patient's age to complete this topic IPV Vaccines Aged Out No longer eligi ble based on patient's age to complete this topic MMR Vaccines Aged Out No longer eligi ble based on patient's age to complete this topic Meningococcal ACWY Vaccine Aged Out N o longer eligible based on patient's age to complete this topic Meningococcal B Vacine Aged Out No lo nger eligible based on patient's age to complete this topic Pneumococcal Vaccine: Pediat rics (0 to 5 Years) and At-Risk Patients (6 to 64 Years) Aged Out No longer eligible b ased on patient's age to complete this topic RSV Immunization Patients Un joyce 20 months Aged Out No longer eligible b ased on patient's age to complete this topic Varicella Vaccines Aged Out No longer eligible based on patient's age to complete this topic Care Teams Penology Teacher Relationship Specialty Start Date End Date Ashly Viveros MD [address] [place] [address] PCP - General Internal Medicine 01/05/17
[2024-09-30 16:26] LABS: Appearance Urine Cloudy; Color Urine Dark Yellow; Glucose Urine UA Negative (Negative); Leukocyte Esterase Urine Moderate (2+) (Negative); Nitrite Urine Positive (Negative); PH 6.5 (5.0-9.0); Specific Gravity - Urine 1.025 (1.005-1.025); UMIC TRIGGER UA YES; Urine Blood Negative (Negative); Urine Ketones Trace mg/dL (Negative); Urine Protein Trace mg/dL (Neg-Trace)
[2024-09-30 16:39] LABS: Anion Gap 10 (12-20); Blood Urea Nitrogen 7 mg/dL (9-16); Calcium 9.2 mg/dL (8.4-10.2); Carbon Dioxide 24 mmol/L (22-29); Chloride 110 mmol/L (96-108); Estimated Glomerular Filt Rate > 60; Glucose Random 79 mg/dL (60-115); Magnesium 2.1 mg/dL (1.6-2.6); Phosphorus 3.2 mg/dL (2.7-4.5); Sodium 140 mmol/L (135-145)
[2024-09-30 16:47] LABS: Bacteria Urine 1+ (None Seen); Calcium Oxalate Crystals Urine Present; Hyaline Casts Urine 0-2 /LPF (0-2); RBC Urine 0-2 /HPF (0-2); WBC Urine >50 /HPF (0-5)
[2024-09-30 16:56] LABS: Vitamin D 25-OH Total 13.6 ng/mL (>30)
== END 2024-09-30 12:18 | disposition home or self-care (01) ==
LOC: HO.HMGCLDS 12:17
PROVIDERS: PCP Internal Medicine; Visit Provider Urology
DX: N20.1 Calculus of ureter (principal); R10.9 Unspecified abdominal pain; N20.0 Calculus of kidney
CPT/HCPCS: 36415; 80048; 81001; 82306; 83735; 84100; 84550; 87086

== ENCOUNTER 2024-11-20 09:28 | Outpatient (AMB) | payer OTHER, SELFPAY ==
--- NOTE | 2024-11-20 09:34 | A.OFFVIS_ITS ---
Intake Visit Reasons: 3m followup Intake Note: Patient is present for 3M F/U Urology Medication:VITAMIN B6 Antibiotic Allergy:NONE Blood Thinner:NONE Instructional Technology Coach Required: No Allergies No Known Allergies Allergy (Verified 11/20/24 09:35) HPI Comments Details: Deanna Cartwright is a pleasant female. She is a patient of . She is seen for the following urologic conditions - bilateral renal stones - pyelonephritis Here for recurrent UTI Per [facility] analysis has been E coli pansensitive Will trial three-month of suppression antibiotics Bactrim Discussed adding allopurinol to stone regimen Again reiterated need to have 1.5-2 L urine per day which will take 64-80 oz fluid intake Litholink - 07/23 low volume 450, high calcium oxalate saturation, citrate low 347 High calcium phosphate saturation, urine sodium underwent 100, oxalate 27, calcium 59 Nephrolithiasis Intervention - 04/23 bilateral ureteroscopy with laser lithotripsy Imaging - 04/23 Moderate right-sided hydroureteronephrosis with perinephric and periureteral stranding secondary to a 1.2 cm calculus in the right mid to distal ureter. Additional calculi are noted in the right kidney the largest measuring up to 6 mm in the interpolar/lower pole region. Multiple left-sided renal calculi are noted the largest measuring up to 4 mm without hydronephrosis - 07/23 renal ultrasound bilateral small stones Stone composition - [facility] Medical History (Updated 11/20/24 @ 09:59 by Joseph Vann MD) Pyelonephritis Renal stones Recurrent nephrolithiasis Surgical History H/O tubal ligation Previous section Social History Alcohol intake: former Patient Tobacco Use Status: Former Tobacco user Substance Use Type: Marijuana Review of Systems Const Denies chills and Denies fever(s) Card Reports no additional complaints and Denies syncope Resp Denies cough GI Denies abdominal pain and Denies heartburn Reports as per HPI and Denies change in libido Neuro Denies syncope Psych Denies change in libido Endo Denies change in libido Physical Exam Const General: cooperative, healthy appearing, comfortable and no acute distress Orientation/consciousness: patient oriented x3 HEENT Face and sinus: Yes normal facial exam Mouth: moist mucous membranes Neck Neck: Yes normal visual inspection, Yes full ROM and Yes trachea midline Chest Chest palpation & inspection: normal inspection of the chest Resp Effort & Inspection: normal respiratory effort, able to speak in complete sentences and no respiratory distress GI Inspection: Yes normal to inspection Back/Spine/Pelvis Cervical Spine: normal cervical lordosis Thoracic/Lumbar Spine: thoracic and lumbar spine normal to inspection Skin General skin exam: no rashes or lesions noted Neuro General: patient oriented x3, gait normal, tone normal and moves all extremities Extrem General: Yes normal to inspection and Yes capillary refill normal Results AMB Urinalysis, Automated UA Leukoctes 70 Tash/uL Last Edit by KENNA Garcia on 11/20/24 09:47 UA Nitrite Negative Last Edit by Irma Christensen CCM on 11/20/24 09:47 UA Urobilinogen 0.2 mg/dL Last Edit by Irma Christensen CCM on 11/20/24 09:4 7 UA Protein 15 mg/dL Last Edit by Irma Christensen CCM on 11/20/24 09:47 UA pH 6.0 Last Edit by Irma Christensen CCM on 11/20/24 09:47 UA Blood 0 Anson/uL Last Edit by KENNA Garcia on 11/20/24 09:47 UA Specific [place] 1.025 Last Edit by Irma Christensen CCM on 11/20/24 09: 47 UA Ketone Positive Last Edit by Irma Christensen CCM on 11/20/24 09:47 UA Bilirubin 0 mg/dL Last Edit by Irma Christensen CCM on 11/20/24 09:47 UA Glucose 0 mg/dL Last Edit by Irma Christensen [facility] on 11/20/24 09:47 Results Reviewed Results Reviewed: Laboratory Last Values Urine pH (Auto) 6.0 11/20/24 09:47 Specific [place] (Auto) 1.025 11/20/24 09:47 Urine Protein (Auto) 15 mg/dL 11/20/24 09:47 Glucose (UA)(Auto) 0 mg/dL 11/20/24 09:47 Urine Ketones (Auto) Positive 11/20/24 09:47 Urine Blood (Auto) 0 Anson/uL 11/20/24 09:47 Urine Nitrite (Auto) Negative 11/20/24 09:47 Urine Bilirubin (Auto) 0 mg/dL 11/20/24 09:47 Urine Urobilinogen (Auto) 0.2 mg/dL 11/20/24 09:47 Leukocyte Esterase (Auto) 70 Tash/uL 11/20/24 09:47 Assessment & Plan Assessment & Plan (1) Renal stones: Code(s): N20.0 - Calculus of kidney Category: Medical (2) Recurrent UTI: Code(s): N39.0 - Urinary tract infection, site not specified Category: Medical Plan Prescriptions provided Imaging follow-up Orders: Orders US renal BI 6 Months N20.0 - Calculus of kidney AMB Urinalysis Automated Today Z13.9 - Encounter for screening, unspecified Medications: New sulfamethoxazole-trimethoprim 400-80 mg (Bactrim) 1 tab PO BEDTIME 90 days 90 tabs 0RF N39.0 - Urinary tract infection, site not specified allopurinol 100 mg PO DAILY 90 days 90 tabs 1RF N20.0 - Calculus of kidney, N39.0 - Urinary tract infection, site not specified ascorbic acid (vitamin C) 1 g PO DAILY 90 days 90 tabs 1RF N39.0 - Urinary tract infection, site not specified Patient Instructions: This note is constructed using voice recognition software. While every effort has been made to ensure accuracy dispatch supervisor errors may have been included. Imaging studies, laboratory and physical exam results were discussed and reviewed in detail. No major barriers to patient understanding were identified. An opportunity to ask questions regarding the treatment plan was provided. All questions were answered. The patient expressed understanding and agreement with the above treatment plan. The patient is aware they should contact our office by phone for worsening of their current condition or the appearance of new urologic symptoms. Compliance is encouraged with any medications and followup testing that is ordered. It is a privilege to participate in the urologic care of your patient. If you have any questions or concerns regarding treatment for the above conditions, or other urologic issues, please do not hesitate to contact me. The office telephone contact is [phone]. Sincerely, Dr Joseph Vann MD, [facility] - Urology Compassionate Specialist Care for the Genitourinary System Coding Level of Care Code Est Pt Level 4 (17421) Complex EM visit Add On G2211 Diagnoses Renal stones N20.0 Recurrent UTI N39.0
--- OUTSIDE RECORDS SUMMARY | 2024-11-20 10:31 | XMS_ITS | Clinical Summary ---
Author Organization [facility] ity Address [address] [place] [address] Care Team Providers Care Studio Operation Engineer Name Role Phone Ashly Viveros MD Primary Care Provider [phone] Social History Tobacco Use Types Packs/Day Years [...] Vaccine (2023-2 5 season) 2024 Influenza Vaccine (Season Ended) 2025 HIB Vaccines Aged Out No longer eligi [...] age to complete this topic Meningococcal B Vaccine Aged Out No l onger eligible based on patient's age to complete [...] age to complete this topic Care Teams Studio Operation Engineer Relationship Specialty Start Date End Date Ashly Viveros MD [address] [place] [address] PCP - General Internal Medicine 01/05/17
== END 2024-11-20 10:09 | disposition home or self-care (01) ==
LOC: HO.HUSH 09:29
PROVIDERS: PCP Internal Medicine; Visit Provider Urology
DX: N20.0 Calculus of kidney (principal); N39.0 Urinary tract infection, site not specified; Z13.9 Encounter for screening, unspecified
CPT/HCPCS: 99214; G2211

== ENCOUNTER → 2024-11-20 09:28 | Outpatient (BNVA) | payer OTHER, SELFPAY | PROVIDERS: PCP Internal Medicine; Visit Provider Urology | DX: N39.0 Urinary tract infection, site not specified (principal); N20.0 Calculus of kidney | CPT/HCPCS: 81003; 99212 ==

== ENCOUNTER 2025-05-21 15:09 | Outpatient (REF) | payer BC, MEDICAID, SELFPAY ==
--- NOTE | ~2025-05-21 | US_ITS ---
EXAMINATION: US KIDNEY BILATERAL HISTORY: N20.0 - Calculus of kidney TECHNIQUE: Real-time grayscale ultrasound imaging of the kidneys was performed and images were reviewed. COMPARISON: Comparison is made with the prior examination dated 07/09/2024. FINDINGS: Right kidney: The right kidney measures 11.1 x 5.8 x 5.4 cm. Renal parenchymal echotexture and thickness are normal. There are no masses. There are tiny echogenic foci which do not shadow which could represent tiny calculi. There is no hydronephrosis. Left Kidney: The left kidney measures 9.6 x 5.7 x 5.3 cm. Renal parenchymal echotexture and thickness are normal. There are no masses. There is a 2 mm nonobstructing calculus in the interpolar region and a 3 mm nonobstructing calculus at the lower pole. Additional tiny echogenic foci which do not shadow are also noted. No hydronephrosis. US/US renal BI IMPRESSION: Left nephrolithiasis measuring up to 3 mm. Possible additional bilateral calculi as described. Electronically signed by: Rik Guerrero MD 05/21/2025 03:56 PM EDT
--- OUTSIDE RECORDS SUMMARY | 2025-05-21 21:24 | XMS_ITS | Encounter Summary ---
Author Organization [facility] Address [address] [facility] [address] [place] [id number] Phone Care Team Providers Care Design Engineering Intern Name Role Phone Ashly Viveros MD Primary Care Provider [phone] Encounter Details Date Type Department Care Team ([facility] st Contact Info) Description 07/17/2023 Procedure Pass [facility], Ct Scan - [address] [address] Social History Tobacco Use Types Packs/Day Years Used Date Smoking Tobacco: Never Smokeless Tobacco: Never Alcohol Use Standard Drinks/Week Comments Yes 0 (1 standard drink = 0.6 oz pur e alcohol) social Education Answer Date Recorded Are you interested in more education? Not on mann e 11/26/2022 Are you concerned about learning? Not on file 11/26/2022 No 11/26/2022 No 11/26/2022 Digital Access Answer Date Recorded No 12/25/2022 No 12/25/2022 Reliable internet access at home? Not on file 12/25/2022 Device with a working camera? Not on file Comments No Sex and Gender Information Value Date Recorded Sex Assigned at Female 01/14/2022 9:25 AM EDT Legal Sex Female 9:04 AM EDT Gender Identity Female 01/14/2022 9:25 AM EDT Sexual Orientation Don't know 03/14/2024 2: 14 PM EDT documented as of this encounter Functional Status * Calculated C-SSRS Risk Score (Lifetime/Recent) Answer Date of Assessment Author No Risk Indicated 07/17/2023 11:56 AM Nakita Bronson RN * [place] Suicide Severity Rating Scale (Screener/Recent Self-Report) Question Answer Date of Assessment Author 1. Wish to be (Past 1 Month) No 023 11:56 AM Nakita Bronson RN 2. Non-Specific Active Suici david Thoughts (Past 1 Month) No 07/17/2023 11:56 AM Raul Bronson RN 6. Suicidal Behavior (Lifetime) No 11:56 AM Nakita Bronson RN documented as of this encounter Plan of Treatment Not on file documented as of this encounter Visit Diagnoses Not on filedocumented in this encounter Additional Health Concerns Infection Onset Date Last Indicated Resolved Time CoV-Risk 03/14/2024 03/15/2024 03/15/2024 12:3 0 PM EDT COVID-19 03/15/2024 03/15/2024 04/05/2024 1:21 AM EDT documented as of this encounter Care Teams Design Engineering Intern Relationship Specialty Start Date End Date Ashly Viveros MD [address] [place] [id number] PCP - General Pediatrics 01/14/22 documented as of this encounter Additional Source Comments The information contained in this document represents components of the legal health record. It is not the complete legal health record.[facility]
--- OUTSIDE RECORDS SUMMARY | 2025-05-21 21:24 | XMS_ITS | Clinical Summary ---
Author Organization [facility] Address [address] [address] Phone Care Team Providers Care Lapel Stitcher Name Role Phone Ashly Viveros MD Primary Care Provider Allergies No known active allergies Medications ondansetron (ZOFRAN-ODT) 4 MG disintegrating tablet Take 1 tablet (4 mg total) by mouth every 12 (twelve) hours as needed for nausea. 15 tablet 4 Active traMADoL (ULTRAM) 50 mg tablet Take 1 tablet (50 mg total) by mouth every 8 (eight) hours as needed. 8 tablet 4 Active Active Problems Problem Noted Date Diagnosed Date COVID-19 03/15/2024 Assessment & Plan (03/16/2024 4:07 PM EDT): No acute hypoxia supportive care enhanced precautions Pyelonephritis 03/14/2024 Assessment & Plan (03/16/2024 4:06 PM EDT): -Suspect pyelonephritis on the right-hand side given imaging findings of perinephric fat stranding as well as CVA tenderness on exam and positive findings of UTI -Underlying history of recurrent kidney stones, previously examined kidney stone was 80% calcium phosphate in 2021, 20% calcium oxalate -Unclear if patient had a passing stone however urinalysis did not reveal significant blood Blood cultures no growth to date urine culture with E. Coli pansensitive Continue ceftriaxone for now If she tolerates oral diet without vomiting overnight will transition to oral antibiotic tomorrow for discharge Recommend continue follow-up with urology History of nephrolithiasis 07/17/2023 Overview (07/17/2023): 2-3 times per year since age 20 years Assessment & Plan (03/15/2024 4:39 PM EDT): . Assessment & Plan (07/20/2023 1:08 PM EST): - History of multiple kidney stones - S/p nephrostomy tube - Discussed management of nephrostomy tube with urology, recommend drainage of bag is much as possible, change in dressing every 2 days, follow-up with urology clinic as soon as possible Plan - Patient instructed by RN in regards to draining bag - Instructed patient to keep bag secure in purse during ambulation, and dressing changes every 2 days, cleaning the area of insertion with mild soap and water, gauze and tape will be provided when discharge ready - As per urologist, nurse of urology clinic will contact patient to make an appointment for follow-up Ureterolithiasis 01/14/2022 Assessment & Plan (01/14/2022 5:26 PM EDT): Patient has a history of repeated nephrolithiasis and notes that the pain that she feels is very similar to this. CT abdomen/pelvis revealed 1.Mild left hydronephrosis due to a 4 mm upper ureteric calculus. 2.Multiple bilateral nonobstructive renal calculi. Urology was consulted and saw the patient while in the emergency department; a plan was made for possible stenting tomorrow. According to the patient no attempt has been made to analyze the stones that she has had in the past and she has persisted in getting stones even though she does drink a fair amount of water per day. Plan: Strain all urine Tamsulosin 0.4 mg daily Pain control with acetaminophen/PO oxycodone/IV morphine Nausea control with: one dose of lorazepam IV, followed by IV ondansetron as needed. Avoiding metoclopramide due to urinary retention side effect IV fluids LR at 100 mL/hour Clear liquid diet/NPO after midnight preparation for procedure Suggest renal calculus analysis if possible Resolved Problems Problem Noted Date Diagnosed Date Resolved Date Pyelonephritis 01/14/2022 07/20/2023 Assessment & Plan (07/20/2023 1:06 PM EST): - Reports improvement of symptoms, right flank pain has resolved - Afebrile, vital stable - Able to tolerate p.o. Plan - DC IV ceftriaxone - Start Levaquin 500 mg p.o. daily x 5 days Assessment & Plan (01/15/2022 1:48 PM EDT): On admission the patient has urinalysis suggestive of infection with positive leukocyte esterase, RBCs and pyuria. CBC reveals leukocytosis to 13.43. She endorses feeling hot, although without objective fever. In combination with mild hydronephrosis raises concern for pyelonephritis. Plan: Routine VS Treat fever with Tylenol for comfort Trend CBC with differential Continue daily ceftriaxone IV Family History Medical History Relation Comments No Known Problems Father No Known Problems Mother Relation Status Comments Father Mother Social History Tobacco Use Types Packs/Day Years Used Date Smoking Tobacco: Never Smokeless Tobacco: Never Alcohol Use Standard Drinks/Week Comments Yes 0 (1 standard drink = 0.6 oz pur e alcohol) social Education Answer Date Recorded Are you interested in more education? Not on mann e 11/26/2022 Are you concerned about learning? Not on file 11/26/2022 No 11/26/2022 No 11/26/2022 Food Answer Date Recorded Within the past 6 months we worried whether our food would run out before we got money to buy more. Never True 03/14/2024 Within the past 6 months the food we bought just didn't last and we didn't have enough money to get more. Never True Residential Stability Answer Date Recor ded What is your housing situation today? I have chriss sing 03/14/2024 How many times have you moved in the past 12 mon ths? One time 03/14/2024 Paying for Meds Answer Date Recorded Do you have trouble paying for medicines? No 03/14/2024 Paying Utility Bills Answer Date Record ed Do you have trouble paying your heating or elect ricity bill? No 03/14/2024 Transportation Answer Date Recorded Has the lack of transportati on kept you from medical appointments or from getting medications? No 03/14/2024 Digital Access Answer Date Recorded No 03/14/2024 Yes 03/14/2024 Do you have reliable internet access at home? Ye s 03/14/2024 Do you have a device (e.g., phone, tablet, computer) with a working camera? Yes 03/14/2024 Intimate Partner Violence Answer Date R ecorded Are you denied basic needs s uch as food, clothing, or medical care? No 03/14/2024 In the past 12 months have y ou been in a relationship with a person who hurts, threatens, or tries to control you? No 03/14/2024 Are you denied basic needs s uch as food, clothing, or medical care? No 03/14/2024 In the past 12 months have y ou been in a relationship with a person who hurts, threatens, or tries to control you? No 03/14/2024 Comments No Sex and Gender Information Value Date Recorded Sex Assigned at Female 01/14/2022 9:25 AM EDT Legal Sex Female 9:04 AM EDT Gender Identity Female 01/14/2022 9:25 AM EDT Sexual Orientation Don't know 03/14/2024 2: 14 PM EDT Last Filed Vital Signs Vital Sign Reading Time Taken Comments Blood Pressure 124/84 03/17/2024 3:05 PM EDT Pulse 63 03/17/2024 3:05 PM EDT Temperature 36.8 C (98.2 F) 03/17/2024 3:05 PM EDT Respiratory Rate 18 03/17/2024 3:05 PM EDT Oxygen Saturation 98% 03/17/2024 3:05 PM EDT Inhaled Oxygen Concentration - - Weight 70.3 kg (155 lb) 03/14/2024 2:21 PM EDT Height 157.5 cm (5' 2 ) 03/14/2024 2:21 PM EDT Body Mass Index 28.35 03/14/2024 2:21 PM EDT Plan of Treatment Health Maintenance Due Date Last Done Comments DEPRESSION SCREENING 2004 HEPATITIS C SCREENING 2010 HIV ONE-TIME SCREENING (18-65 YEARS) 2010 PAP SMEAR 2013 INFLUENZA VACCINE (#1) 2025 , 07/05/2019, 07/26/2017, Additional history exists COVID-19 VACCINE (2024- season) 2025 09/10/2020, 08/13/2020 Adult Td,Tdap Booster 11/06/2029 11/07/2019 , 08/08/2012, 10/13/2009, Additional history exists SMOKING STATUS SCREENING (Once After 26 Yrs) Completed 07/17/2023 HEPATITIS A VACCINES Aged Out No long er eligible based on patient's age to complete this topic HIB VACCINES Aged Out No longer eligi ble based on patient's age to complete this topic MENINGOCOCCAL VACCINES (ACWY) Aged Out No longer eligible based on patient's age to complete this topic MENINGOCOCCAL VACCINES (B) Aged Out N o longer eligible based on patient's age to complete this topic PNEUMOCOCCAL VACCINES (0-49 years) Aged Out No longer eligible based on patient's age to complete this topic Medical Devices Implanted Type Area Rn Hemodialysis Device Identifier Shelf Expiration Date Model / Serial / Lot Stent Ureteral [id number] To 30cm Double Pigtail Suture Stretch Vl Positioner - [id number] Implanted:Qty: 1 on 01/15/2022 by Ag Montalvo MD at [facility] Left: Ureter [employer] 02/02/2024 [id number] 0 / / [id number] Insurance [facility] [employer] ACO [facility]NERSH[facility] [place] [address] [place] [address] PARTNERSHIP ACO [facility] PARTNERSH[facility] ACO [facility] PART[facility] ACO Advance Directives For more information, please contact: [phone] (9AM - 5PM [facility], Monday-Monday) * Full Code (Latest Code Status on File) Date Activated Date Inactivated Comments 03/14/2024 9:44 PM Question Answer Comments Code Status Confirmed With: Patient Code Status Communicated To: Inpatient Attending * Full Code Date Activated Date Inactivated Comments 07/17/2023 7:22 PM 03/14/2024 9:44 PM Question Answer Comments Code Status Confirmed With: Patient * Full Code Date Activated Date Inactivated Comments 01/14/2022 4:35 PM 07/17/2023 7:22 PM Question Answer Comments Code Status Confirmed With: Patient Care Teams Lapel Stitcher Relationship Specialty Start Date End Date Ashly Viveros MD [address] [place] [id number] PCP - General Pediatrics 01/14/22 Additional Source Comments The information contained in this document represents components of the legal health record. It is not the complete legal health record.[facility]
--- OUTSIDE RECORDS SUMMARY | 2025-05-21 21:24 | XMS_ITS | Encounter Summary ---
Author Organization [facility] Address [address] [place] [id number] Phone Care Team Providers Care Projector Operator Name Role Phone Ashly Viveros MD Primary Care Provider [phone] Encounter Details Date Type Department Care Team ([facility] st Contact Info) Description 03/14/2024 Procedure Pass [facility], Ct Scan - [address] [address] Social History Tobacco Use Types Packs/Day Years [...] is your housing situation today? I have chrissjosse vargas 03/14/2024 How many times have you moved [...] Date of Assessment Author No Risk Indicated 03/14/2024 9:00 PM EDT Rosanne Devi RN * [place] Suicide Severity Rating Scale (Screener/Recent Self-Report) Question Answer Date of Assessment Author 1. Wish to be (Past 1 Month) No 03/14/2024 9:00 PM EDT Christofer Mills RN 2. Non-Specific Active Suicidal Thoughts (Past 1 Month) No 03/14/2024 9:00 PM EDT Christofer Mills RN 6. Suicidal Behavior (Lifetime) No 03/14/2024 9:00 PM EDT Christofer Mills RN documented as of this encounter Plan of Treatment Not on file documented as of this encounter Visit Diagnoses Not on filedocumented in this encounter Additional Health Concerns Infection Onset Date Last Indicated Resolved Time CoV-Risk 03/14/2024 03/15/2024 03/15/2024 12:3 0 PM EDT COVID-19 03/15/2024 03/15/2024 04/05/2024 1:21 AM EDT documented as of this encounter Care Teams Projector Operator Relationship Specialty Start Date End Date Ashly Viveros MD [address] [place] [id number] PCP - General Pediatrics 01/14/22 documented as of this encounter Additional Source Comments The information contained in this document represents components of the legal health record. It is not the complete legal health record.[facility]
--- OUTSIDE RECORDS SUMMARY | 2025-05-21 21:24 | XMS_ITS | Encounter Summary ---
Author Organization [facility] Address [address] [address] Phone Care Team Providers Care Medical Assistant Name Role Phone Ashly Viveros MD Primary Care Provider [phone]- [phone] Encounter Details Date Type Department Care Team (Late st Contact Info) Description 01/14/2022 Procedure Pass [facility], Ct Scan - [address] [address] Social History Tobacco Use Types Packs/Day Years Used Date Smoking Tobacco: Never Smokeless Tobacco: Never Alcohol Use Standard Drinks/Week Comments Yes 0 (1 standard drink = 0.6 oz pur e alcohol) social Comments No Sex and Gender Information Value Date Recorded Sex Assigned at Female 01/14/2022 9:25 AM EDT Legal Sex Female 9:04 AM EDT Gender Identity Female 01/14/2022 9:25 AM EDT Sexual Orientation Don't know 03/14/2024 2: 14 PM EDT documented as of this encounter Functional Status * Calculated C-SSRS Risk Score (Lifetime/Recent) Answer Date of Assessment Author No Risk Indicated 01/14/2022 9:24 AM EDT Denisha Chandra RN * [place] Suicide Severity Rating Scale (Screener/Recent Self-Report) Question Answer Date of Assessment Author 1. Wish to be (Past 1 Month) No 01/14/2022 9:24 AM EDT Nichole Mcgee RN 2. Non-Specific Active Suicidal Thoughts (Past 1 Month) No 01/14/2022 9:24 AM EDT Johnson-Joy, Nichole ne H, RN 6. Suicidal Behavior (Lifetime) No 01/14/2022 9:24 AM EDT Radha Mcgee RN documented as of this encounter Plan of Treatment Not on file documented as of this encounter Visit Diagnoses Not on filedocumented in this encounter Additional Health Concerns Infection Onset Date Last Indicated Resolved Time CoV-Risk 03/14/2024 03/15/2024 03/15/2024 12:3 0 PM EDT COVID-19 03/15/2024 03/15/2024 04/05/2024 1:21 AM EDT documented as of this encounter Care Teams Medical Assistant Relationship Specialty Start Date End Date Ashly Viveros MD [address] [place] [address] PCP - General Pediatrics 01/14/22 documented as of this encounter Additional Source Comments The information contained in this document represents components of the legal health record. It is not the complete legal health record.[facility]
--- OUTSIDE RECORDS SUMMARY | 2025-05-21 21:25 | XMS_ITS | Encounter Summary ---
Author Organization [facility] Address [address] [place] [address] Phone Care Team Providers Care Carpet Cleaning Technician Name Role Phone Ashly Viveros MD Primary Care Provider Encounter Details Date Type Department Care Team ([facility] st Contact Info) Description 01/15/2022 Procedure Pass [place] Admitting Dept - Virtual Department [address] [place] [address] Social History Tobacco Use Types Packs/Day Years [...] PM EDT documented as of this encounter Plan of Treatment Not on file documented as of this encounter Visit Diagnoses Not on filedocumented in this encounter Additional Health Concerns Infection Onset Date Last Indicated Resolved Time CoV-Risk 03/14/2024 03/15/2024 03/15/2024 12:3 0 PM EDT COVID-19 03/15/2024 03/15/2024 04/05/2024 1:21 AM EDT documented as of this encounter Care Teams Carpet Cleaning Technician Relationship Specialty Start Date End Date Ashly Viveros MD [address] [place] [id number] PCP - General Pediatrics 01/14/22 documented as of this encounter Additional Source Comments The information contained in this document represents components of the legal health record. It is not the complete legal health record.[facility]
--- OUTSIDE RECORDS SUMMARY | 2025-05-21 21:25 | XMS_ITS | Encounter Summary ---
Author Organization [facility] Address [address] [address] Phone Care Team Providers Care Core Shaper Sides Name Role Phone Ashly Viveros MD Primary Care Provider Encounter Details Date Type Department Care Team ([facility] st Contact Info) Description 07/17/2023 Procedure Pass [facility] [address] [place] [address] Social History Tobacco Use Types Packs/Day Years [...] Author No Risk Indicated 07/17/2023 11:56 AM EST Cha , Nakita, RN * [place] Suicide Severity Rating Scale (Screener/Recent Self-Report) Question Answer Date of Assessment Author 1. Wish to be (Past 1 Month) No 023 11:56 AM Nakita Bronson RN 2. Non-Specific Active Suici david Thoughts (Past 1 Month) No 07/17/2023 11:56 AM Ralu Bronson RN 6. Suicidal Behavior (Lifetime) No [...] documented as of this encounter Care Teams Core Shaper Sides Relationship Specialty Start Date End Date Ashly Viveros MD [address] [place] [id number] PCP - General Pediatrics 01/14/22 documented as of this encounter Additional Source Comments The information contained in this document represents components of the legal health record. It is not the complete legal health record.[facility]
== END 2025-05-21 15:10 | disposition home or self-care (01) ==
LOC: HO.HMGCX 15:09
PROVIDERS: PCP Internal Medicine; Visit Provider Urology
DX: N20.0 Calculus of kidney (principal)
CPT/HCPCS: 76775

== ENCOUNTER → 2025-05-21 15:11 | Outpatient (BNV) | payer BC, MEDICAID, SELFPAY | PROVIDERS: PCP Internal Medicine; Visit Provider Radiology Diagnostic Radiology | DX: N20.0 Calculus of kidney (principal) | CPT/HCPCS: 76775 ==